=== PATIENT | male | born 1950 | race Caucasian/White ===

== ENCOUNTER → 2020-05-01 15:14 | Outpatient (ROUT) | payer MEDICARE, SELFPAY ==
[2020-05-01 15:47] LABS: Aspartate Aminotransferase 23 IU/L (17-59); BUN Creatinine Ratio 20.2 (6-22); Blood Urea Nitrogen 18 mg/dL (9-20); Calcium 10.1 mg/dL (8.4-10.2); Carbon Dioxide 28 mmol/L (22-32); Chloride 103 mmol/L (98-107); Cholesterol 179 mg/dL (140-199); Estimated Glomerular Filt Rate > 60.0 mL/min (>60); Glucose 92 mg/dL (80-110); HDL Cholesterol 40 mg/dL (40-60); HEMOLYSIS < 15 (0-50); LDL Cholesterol Calculated 125 mg/dL (<100); Potassium 4.7 mmol/L (3.4-5.1); Sodium 137 mmol/L (137-145); Triglycerides 69 mg/dL (35-150)
[2020-05-01 16:13] LABS: Prostate Specific Antigen 5.35 ng/mL (0.10-4.00)
== END ==
PROVIDERS: PCP Internal Medicine; Visit Provider Internal Medicine
DX: N40.1 Benign prostatic hyperplasia with lower urinary tract symptoms (principal); E78.2 Mixed hyperlipidemia
CPT/HCPCS: 80048; 80061; 84153; 84450

== ENCOUNTER → 2021-08-07 10:28 | Outpatient (CLI) | payer MEDICARE, SELFPAY ==
--- NOTE | 2021-08-07 10:30 | DI.RAD.S_ITS ---
PROCEDURE: XR CHEST 2V INDICATIONS: shortness of breath, cough TECHNIQUE: 2 views of the chest were acquired. COMPARISON: None. FINDINGS: Surgical changes and devices: None. Lungs and pleura: Lungs are clear. No pleural effusions or pneumothorax. Mediastinum: Mediastinal contours are normal. Heart size is normal. Bones and chest wall: No suspicious bony abnormalities. Soft tissues appear unremarkable. IMPRESSION: No acute cardiopulmonary process demonstrated radiographically. Dictated by: Johan Estrada M.D. on 08/07/2021 at 11:07 Approved by: Johan Estrada M.D. on 08/07/2021 at 11:07
[2021-08-07 11:28] LABS: Hematocrit 44.6 % (41-53); Hemoglobin 15.3 g/dL (13.5-17.5); Mean Corpuscular HGB Conc 34.3 % (30-36); Mean Corpuscular Hemoglobin 30.8 PG (26-34); Mean Corpuscular Volume 89.9 fL (80-100); Platelet Count 206 X10^3/uL (150-400); Red Blood Cell Count 4.96 X10^6/uL (4.5-5.9); Red Cell Distribution Width 13.1 % (11.6-14.8); White Blood Cell Count 5.4 X10^3/uL (4.5-11.0)
[2021-08-07 11:35] LABS: Alanine Aminotransferase 19 IU/L (<50); Albumin 4.5 g/dL (3.5-5.0); Albumin Globulin Ratio 1.4 (1.0-2.8); Alkaline Phosphatase 66 U/L (38-126); Aspartate Aminotransferase 22 IU/L (17-59); Bilirubin Total 0.8 mg/dL (0.2-1.3); Blood Urea Nitrogen 20 mg/dL (9-20); Calcium 9.3 mg/dL (8.4-10.2); Carbon Dioxide 30 mmol/L (22-32); Chloride 103 mmol/L (98-107); Cholesterol 193 mg/dL (140-199); Estimated Glomerular Filt Rate > 60 mL/min (>60); Globulin 3.2 g/dL (1.7-4.1); Glucose 93 mg/dL (80-110); HDL Cholesterol 41 mg/dL (40-60); HEMOLYSIS < 15 (0-50); LDL Cholesterol Calculated 137 mg/dL (<100); Potassium 4.5 mmol/L (3.4-5.1); Sodium 140 mmol/L (137-145); Total Protein 7.7 g/dL (6.3-8.2); Triglycerides 76 mg/dL (35-150)
[2021-08-07 12:04] LABS: Prostate Specific Antigen 4.84 ng/mL (0.10-4.00)
[2021-08-07 13:11] LABS: TSH w/ Reflex to FT4 1.37 uIU/mL (0.47-4.68)
== END ==
PROVIDERS: PCP Internal Medicine; Referring Provider Internal Medicine; Visit Provider Internal Medicine
DX: R06.02 Shortness of breath (principal); R05.9 Cough, unspecified; E78.2 Mixed hyperlipidemia; N40.1 Benign prostatic hyperplasia with lower urinary tract symptoms; N13.8 Other obstructive and reflux uropathy
CPT/HCPCS: 36415; 71046; 80053; 80061; 84153; 84443; 85027; 93005

== ENCOUNTER → 2021-08-14 15:58 | Outpatient (CLI) | payer MEDICARE, SELFPAY ==
[2021-08-14 16:49] LABS: COVID19 -Nasal RAPID Negative (Negative)
== END ==
PROVIDERS: PCP Internal Medicine; Referring Provider Internal Medicine; Visit Provider Internal Medicine
DX: Z20.822 Contact with and (suspected) exposure to COVID-19 (principal)
CPT/HCPCS: 87635; C9803

== ENCOUNTER → 2021-08-15 08:19 | Outpatient (CLI) | payer MEDICARE, SELFPAY ==
--- NOTE | 2021-08-20 08:25 | PM.PFT.1 ---
Pulmonary Function Test Referral & Results Date Patient Seen: 08/15/21 Requesting provider: Omar Noriega Results: The spirometry demonstrates an FVC of 3.43 L which is 82% of predicted. The FEV1 was measured at 2.56 L which is 85% of predicted. The FEV1/FVC ratio was 75 which is 102% of predicted. Following the administration of bronchodilator there was a 20% improvement in FEF 25-75%. Lung volumes show an SVC of 3.46 L which is 79% of predicted. The diffusing capacity was measured at 30.43 which is 98% of predicted. The maximum voluntary ventilation was normal Interpretation: This study demonstrates probably normal pulmonary function There is a minimal reduction FEV1 suggesting the possibility of mild obstructive lung disease although FEV1/FVC ratio is preserved. There is also some very limited evidence of benefit in small airway flow after bronchodilator administration based on improvement in FEF 25-75% as above There may also be a very minimal reduction in lung volumes suggesting the possibility of very mild restrictive lung disease based on reduction SVC as above Clinical correlation suggested
== END ==
PROVIDERS: PCP Internal Medicine; Referring Provider Internal Medicine; Visit Provider Internal Medicine
DX: R06.02 Shortness of breath (principal); R05.9 Cough, unspecified; J98.8 Other specified respiratory disorders
CPT/HCPCS: 94060; 94726; 94729

== ENCOUNTER → 2021-09-29 09:59 | Outpatient (CLI) | payer MEDICARE, SELFPAY ==
[2021-09-29 10:38] LABS: COVID19 -Nasal RAPID Negative (Negative)
--- NOTE | 2021-09-29 17:32 | DI.NM.S_ITS ---
DATE OF SERVICE: 09/29/2021 PROCEDURE: Exercise perfusion study. INDICATION: Chest tightness, shortness of breath with underlying hyperlipidemia. RADIOPHARMACEUTICAL: 24.1 millicurie technetium-99m Myoview IV was injected at stress and 11.7 millicurie technetium-99m Myoview IV was injected at rest. CARDIAC STRESS: The patient underwent exercise perfusion study under the supervision of an attending staff. In total, he walked on Demarco protocol for 10 minutes and 20 seconds. However, after walking on Demarco protocol for about 9 minutes, 40 seconds, it was adjusted manually, as he was having difficulty keeping up with treadmill. Baseline blood pressure 118/88. Peak blood pressure 188/80. Maximum heart rate 160 beats per minute. Achieved 109 percent of target heart rate. 11.6 METs of workload and YEHUDA -45 percent. Baseline rhythm was sinus. During stress, no convincing ischemic changes seen. Some nonspecific ST-T changes seen. Rare PACs without any obvious ventricular tachycardia or atrial fibrillation. No chest discomfort. The patient had some shortness of breath. RAW DATA: There was increased subdiaphragmatic activity. GATED STUDY: Resting LV ejection fraction is 70 percent and stress LV ejection fraction 80 percent. No obvious wall motion abnormalities. Resting end- diastolic volume 74 mL. TID ratio 0.63, which is within normal limits. Lung/heart ratio 0.38, which is within normal limits. MYOCARDIAL PERFUSION SCAN: Stress supine, resting supine and stress prone images were compared to each other. Stress supine and resting supine images showed a small to moderate size, mildly decreased perfusion of base to mid inferior wall, which got completely resolved during stress prone images, suggestive of diaphragmatic tissue attenuation artifact. CONCLUSION: This is a normal myocardial perfusion study with evidence of diaphragmatic tissue attenuation artifact, which got resolved during stress prone images. The stress prone images revealed normal myocardial perfusion. Excellent exercise tolerance. Functional aerobic impairment -45 percent. Normal hemodynamic response. No convincing ischemic changes. No chest pain. The patient had shortness of breath. Left ventricular function is preserved. Overall, this is a low-risk exercise myocardial perfusion scan. GeorgeChandler march - Chris/taylor doc#: [id number]/job#: [id number] dd: 09/29/2021 16:51:00 dt: 09/29/2021 17:00:00 DICTATING MD/COPIES TO: Alyssa Mendez MD COPIES MNE: ELIEL;
== END ==
PROVIDERS: PCP Internal Medicine; Referring Provider Internal Medicine; Visit Provider Internal Medicine
DX: R06.02 Shortness of breath (principal); R07.89 Other chest pain; E78.5 Hyperlipidemia, unspecified; Z20.822 Contact with and (suspected) exposure to COVID-19
CPT/HCPCS: 78452; 87635; 93017; A9502

== ENCOUNTER → 2023-06-30 08:51 | Outpatient (CLI) | payer MEDICARE, SELFPAY ==
[2023-06-30 10:07] LABS: Hematocrit 46.3 % (41-53); Hemoglobin 15.6 g/dL (13.5-17.5); Mean Corpuscular HGB Conc 33.7 % (30-36); Mean Corpuscular Hemoglobin 30.8 PG (26-34); Mean Corpuscular Volume 91.4 fL (80-100); Platelet Count 229 X10^3/uL (150-400); Red Blood Cell Count 5.06 X10^6/uL (4.5-5.9); White Blood Cell Count 6.2 X10^3/uL (4.5-11.0)
[2023-06-30 10:23] LABS: Alanine Aminotransferase 24 IU/L (<50); Albumin 4.5 g/dL (3.5-5.0); Albumin Globulin Ratio 1.7 (1.0-2.8); Alkaline Phosphatase 62 U/L (38-126); Aspartate Aminotransferase 20 IU/L (17-59); Bilirubin Total 0.9 mg/dL (0.2-1.3); Blood Urea Nitrogen 26 mg/dL (9-20); Calcium 9.6 mg/dL (8.4-10.2); Carbon Dioxide 28 mmol/L (22-32); Chloride 106 mmol/L (98-107); Cholesterol 186 mg/dL (140-199); Estimated Glomerular Filt Rate > 60 mL/min (>60); Globulin 2.7 g/dL (1.7-4.1); Glucose 91 mg/dL (80-110); HDL Cholesterol 44 mg/dL (40-60); HEMOLYSIS < 15 (0-50); LDL Cholesterol Calculated 119 mg/dL (<100); Potassium 4.7 mmol/L (3.4-5.1); Sodium 140 mmol/L (137-145); Total Protein 7.2 g/dL (6.3-8.2); Triglycerides 114 mg/dL (35-150)
[2023-06-30 10:53] LABS: Prostate Specific Antigen 4.72 ng/mL (0.10-4.00)
== END ==
PROVIDERS: PCP Internal Medicine; Referring Provider Internal Medicine; Visit Provider Internal Medicine
DX: E78.2 Mixed hyperlipidemia (principal); N40.1 Benign prostatic hyperplasia with lower urinary tract symptoms; N13.8 Other obstructive and reflux uropathy
CPT/HCPCS: 36415; 80053; 80061; 84153; 85027

== ENCOUNTER 2023-12-15 17:19 | Emergency (ER) | payer MEDICARE, SELFPAY ==
[2023-12-15] VITALS (7 sets, daily range): BP systolic 114–142; BP diastolic 70–77; PULSE 62–80; RESP 16–17; TEMP 36.6; O2SAT 91–98; BMI 28.0
--- NOTE | 2023-12-15 17:27 | DI.RAD.S_ITS ---
PROCEDURE: XR CHEST 1V INDICATIONS: chest pain TECHNIQUE: One view of the chest was acquired. COMPARISON: [facility], CR, XR CHEST 2V, 08/07/2021, 10:18. FINDINGS: Surgical changes and devices: None. Lungs and pleura: Lungs are clear. No pleural effusions or pneumothorax. Mediastinum: Mediastinal contours appear normal. Heart size is normal. Bones and chest wall: No suspicious bony lesions. Overlying soft tissues appear unremarkable. IMPRESSION: No acute cardiopulmonary abnormalities or focal consolidation. Dictated by: Valente Uriarte M.D. on 12/15/2023 at 18:16 Approved by: Valente Uriatre M.D. on 12/15/2023 at 18:16
--- NOTE | 2023-12-15 17:30 | EKG_ITS ---
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
--- NOTE | 2023-12-15 17:40 | PC.NURSE ---
Patient took two chewable baby aspirin before coming to the ER. Order changed to 162mg ASA.
[2023-12-15] MEDS: ASPIRIN 81 MG CHEW TAB 162 MG PO (17:41)
[2023-12-15 18:00] LABS: Add Manual Diff / Slide Review NO; Basophils Absolute Auto 100 /uL (0-100); Basophils Percent Auto 0.7 % (0-2); Eosinophils Absolute Auto 200 /uL (0-450); Eosinophils Percent Auto 2.8 % (2-4); Hematocrit 45.6 % (41-53); Hemoglobin 15.6 g/dL (13.5-17.5); Lymphocytes Absolute Auto 2700 /uL (1100-4500); Lymphocytes Percent Auto 32.8 % (25-40); Mean Corpuscular HGB Conc 34.1 % (30-36); Mean Corpuscular Hemoglobin 31.2 PG (26-34); Mean Corpuscular Volume 91.5 fL (80-100); Monocytes Absolute Auto 500 /uL (0-900); Monocytes Percent Auto 6.5 % (3-14); Neutrophils Absolute Auto 4700 /uL (1500-7000); Neutrophils Percent Auto 57.2 % (50-75); Platelet Count 244 X10^3/uL (150-400); Red Blood Cell Count 4.99 X10^6/uL (4.5-5.9); Red Cell Distribution Width 13.3 % (11.6-14.8); White Blood Cell Count 8.2 X10^3/uL (4.5-11.0)
[2023-12-15 18:07] LABS: INR 0.9 (0.9-1.3); Prothrombin Time 10.6 SECONDS (9.4-12.5)
[2023-12-15 18:10] LABS: PTT Partial Thromboplastin Tim 31 SECONDS (25.1-36.5)
[2023-12-15 18:17] LABS: Alanine Aminotransferase 28 IU/L (<50); Albumin 4.6 g/dL (3.5-5.0); Albumin Globulin Ratio 1.6 (1.0-2.8); Alkaline Phosphatase 68 U/L (38-126); Aspartate Aminotransferase 26 IU/L (17-59); BUN Creatinine Ratio 20.3 (6-22); Blood Urea Nitrogen 25 mg/dL (9-20); Calcium 9.6 mg/dL (8.4-10.2); Carbon Dioxide 26 mmol/L (22-32); Chloride 104 mmol/L (98-107); Creatine Kinase 48 U/L (55-170); Estimated Glomerular Filt Rate > 60 mL/min (>60); Globulin 2.8 g/dL (1.7-4.1); Glucose 95 mg/dL (80-110); HEMOLYSIS < 15 (0-50); Lipase 77 U/L (23-300); Magnesium 2.1 mg/dL (1.6-2.3); Potassium 4.3 mmol/L (3.4-5.1); Sodium 137 mmol/L (137-145); Total Protein 7.4 g/dL (6.3-8.2)
[2023-12-15 18:28] LABS: NT-proBNP (BNP-Adult 18+) 43 pg/mL (<450); Troponin I < 0.012 ng/mL (0.01-0.034)
--- NOTE | 2023-12-15 19:10 | ED.CHESTPAIN ---
HPI - Chest Pain General Chief Complaint: Chest Pain Stated Complaint: chest pain, sob Time Seen by Provider: 12/15/23 19:10 Source: patient Mode of arrival: Ambulatory History of Present Illness HPI narrative: 73-year-old male with no known history of coronary artery disease, has had intermittent chest discomfort for the last couple of weeks, increasing frequency last couple of days, usually at wrist, not particularly with any exertion, short in duration, no associated pain in either arm or neck or back or jaw. No associated diaphoresis or nausea or vomiting. Symptoms are short in duration. No specific treatments tried. He denies coronary artery risk factors of diabetes, smoking, hypertension, but is taking a statin cholesterol medication. He recalls having stress testing but a proximally 10 years ago, none more recent. He is due to see his primary care physician Dr. Hari collado. He denies any fevers or chills. He denies cough. He had inhaler to use in the distant past, not usually on any lung medications, denies history of COPD or other chronic lung problems. No history of heart failure recalled, no swelling to legs. No history of blood clots to legs or lungs, no leg pain symptoms. Related Data Home Medications Medication Instructions Recorded Confirmed rosuvastatin 10 mg tablet 10 mg PO DAILY 08/07/21 12/15/23 Previous Rx's Medication Instructions Recorded albuterol sulfate 90 mcg/actuation 2 puff inhalation Q6H PRN 08/15/21 aerosol inhaler shortness of breath or wheezing #8.5 grams valacyclovir 500 mg tablet 500 mg PO BID #14 tabs 03/06/22 tadalafil 5 mg tablet 5 mg PO DAILY #90 tabs 06/30/23 sodium,potassium,mag sulfates 17.5 See Rx Instructions PO .COMPLEX 09/06/23 gram-3.13 gram-1.6 gram oral soln #354 mL (Suprep Bowel Prep Kit) dextroamphetamine-amphetamine ER 20 mg PO DAILY #90 caps 09/07/23 20 mg 24hr capsule,extend release (Adderall XR) Allergies Allergy/AdvReac Type Severity Reaction Status Date / Time No Known Drug Allergies Allergy Verified 12/15/23 17:30 Review of Systems Review of Systems Narrative: See HPI Patient History Medical History Herpesviral infection, unspecified RAD (reactive airway disease) Abnormal chest xray (~1962) Chronic back pain (~2021) Chicken pox History of elevated PSA Erectile dysfunction History of colonic polyps BPH w urinary obs/LUTS ADD (attention deficit disorder) Mixed hyperlipidemia History of lower leg fracture (~2017) Osteoarthritis Surgical History History of appendectomy History of appendectomy Family History Father Heart disease Mother Stomach cancer Social History Smoking Status: Never smoker Smoking Status: Never smoker alcohol intake frequency: holidays/special occasions only Substance Use Type: does not use Exam Narrative Exam Narrative: GENERAL: Well-developed patient, in mild distress. HEAD: Atraumatic. Normocephalic. EYES: Pupils equal round and reactive. Extraocular motions intact. No scleral icterus. No injection or drainage. ENT: Nose without bleeding, purulent drainage. Throat without erythema, tonsillar hypertrophy or exudate. Airway patent. NECK: Trachea midline. Non tender CARDIOVASCULAR: Regular rate and rhythm without murmurs, gallops, or rubs. RESPIRATORY: Clear to auscultation. Breath sounds equal bilaterally. No wheezes, rales, or rhonchi. GASTROINTESTINAL: Abdomen soft, non-tender, nondistended. EXTREMITIES: No edema or joint tenderness. BACK: Nontender without deformity or crepitance. No flank tenderness. NEURO: AOx3. Motor functions grossly nonfocal SKIN: No rash or erythema of visible areas Initial Vital Signs Initial Vital Signs: Vital Signs Temperature 98 F 12/15/23 17:28 Pulse Rate 80 12/15/23 17:28 Respiratory Rate 17 12/15/23 17:28 Blood Pressure 142/77 H 12/15/23 17:28 Pulse Oximetry 96 12/15/23 17:28 Oxygen Delivery Method Room Air 12/15/23 17:28 Course Orders Ordered: ED Orders 12/15/23 17:27 XR chest 1V Stat EKG-12 Lead Stat 12/15/23 17:48 Complete Blood Count AUTO DIFF Stat Comprehensive Metabolic Panel Stat Lipase Stat Magnesium Stat NT-proBNP (BNP-Adult 18+) Stat PTT Partial Thromboplastin [place] Stat Prothrombin Time INR Stat Troponin & CK Cardiac Panel Stat 12/15/23 20:13 Troponin I Stat Discontinued Medications Aspirin (Aspirin 81 Mg Chew Tab) 324 mg PO NOW ONE Stop: 12/15/23 17:28 Last Admin: 12/15/23 17:42 Dose: Not Given Documented By: DARIAN Aspirin (Aspirin 81 Mg Chew Tab) 162 mg PO NOW ONE Stop: 12/15/23 17:41 Last Admin: 12/15/23 17:41 Dose: 162 mg Documented By: DARIAN Vital Signs Vital signs: Vital Signs - 8 hr 12/15/23 19:07 12/15/23 19:07 12/15/23 19:30 Temperature Pulse Rate 74 65 Respiratory Rate Blood Pressure 136/77 Pulse Oximetry 98 95 Oxygen Delivery Method Room Air 12/15/23 19:30 12/15/23 20:00 12/15/23 20:00 Temperature Pulse Rate 66 Respiratory Rate Blood Pressure 124/76 124/76 Pulse Oximetry 95 Oxygen Delivery Method 12/15/23 20:30 12/15/23 21:00 12/15/23 21:24 Temperature 97.8 F Pulse Rate 73 62 Respiratory Rate 16 Blood Pressure 114/70 Pulse Oximetry 91 96 Oxygen Delivery Method Room Air 12/15/23 21:24 Temperature Pulse Rate 74 Respiratory Rate Blood Pressure Pulse Oximetry 98 Oxygen Delivery Method MDM - Chest Pain Lab Data Attestation: I reviewed the patient's lab results. Lab results narrative: CBC unremarkable, hemoglobin 15 noted, renal function normal, electrolytes unremarkable, glucose normal. LFTs normal. BNP not elevated. Troponin negative. 12/15/23 17:48 12/15/23 17:48 Labs: Lab Results 12/15/23 12/15/23 Range/Units 17:48 20:13 WBC 8.2 (4.5-11.0) X10^3/uL RBC 4.99 (4.5-5.9) X10^6/uL Hgb 15.6 (13.5-17.5) g/dL Hct 45.6 (41-53) % MCV 91.5 (80-100) fL MCH 31.2 (26-34) PG MCHC 34.1 (30-36) % RDW 13.3 (11.6-14.8) % Plt Count 244 (150-400) X10^3/uL Neut % (Auto) 57.2 (50-75) % Lymph % (Auto) 32.8 (25-40) % [place] % (Auto) 6.5 (3-14) % Eos % (Auto) 2.8 (2-4) % Baso % (Auto) 0.7 (0-2) % Neut # (Auto) 4700 (5899-4455) /uL Lymph # (Auto) 2700 (6452-7970) /uL [place] # (Auto) 500 (0-900) /uL Eos # (Auto) 200 (0-450) /uL Baso # (Auto) 100 (0-100) /uL PT 10.6 (9.4-12.5) SECONDS INR 0.9 (0.9-1.3) APTT 31 (25.1-36.5) SECONDS Sodium 137 (137-145) mmol/L Potassium 4.3 (3.4-5.1) mmol/L Chloride 104 (98-107) mmol/L Carbon Dioxide 26 (22-32) mmol/L BUN 25 H (9-20) mg/dL Creatinine 1.23 (0.66-1.25) mg/dL Estimated GFR > 60 (>60) mL/min BUN/Creatinine Ratio 20.3 (6-22) Glucose 95 (80-110) mg/dL Calcium 9.6 (8.4-10.2) mg/dL Magnesium 2.1 (1.6-2.3) mg/dL Total Bilirubin 1.0 (0.2-1.3) mg/dL AST 26 (17-59) IU/L ALT 28 (<50) IU/L Alkaline Phosphatase 68 (38-126) U/L Total Creatine Kinase 48 L (55-170) U/L Troponin I < 0.012 0.012 (0.01-0.034) ng/mL NT-Pro-B Natriuret Pep 43 (<450) pg/mL Total Protein 7.4 (6.3-8.2) g/dL Albumin 4.6 (3.5-5.0) g/dL Globulin 2.8 (1.7-4.1) g/dL Albumin/Globulin Ratio 1.6 (1.0-2.8) Lipase 77 (23-300) U/L Imaging Data Chest x-ray: Radiologist's Impression: [address] [address] XRay Report Signed Patient: Chandler Vazquez MR#: [id number] : 1950 Acct:[id number] Age/Sex: 73 / M Date of Service: 12/15/23 Loc: ED Accession Number: [id number] Procedure: XR chest 1V Ordering Provider: Tiny Courtney MD PROCEDURE: XR CHEST 1V INDICATIONS: chest pain TECHNIQUE: One view of the chest was acquired. COMPARISON: [facility], CR, XR CHEST 2V, 08/07/2021, 10:18. FINDINGS: Surgical changes and devices: None. Lungs and pleura: Lungs are clear. No pleural effusions or pneumothorax. Mediastinum: Mediastinal contours appear normal. Heart size is normal. Bones and chest wall: No suspicious bony lesions. Overlying soft tissues appear unremarkable. IMPRESSION: No acute cardiopulmonary abnormalities or focal consolidation. Dictated by: Valente Uriarte M.D. on 12/15/2023 at 18:16 Approved by: Valente Uriarte M.D. on 12/15/2023 at 18:16 ECG Data Attestation: I personally reviewed and interpreted this ECG as follows: Interpretation: Normal sinus rhythm with rate of 80, no obvious ST segment elevation or depression changes. T-wave flattening in lead 3 upright in other contiguous inferior leads 2 and F. NV 132, QRS 78, QTC 410. MDM Narrative Medical decision making narrative: 73-year-old male with intermittent chest discomfort last couple of weeks, history of statin use for cholesterol, otherwise no coronary risk factors besides age, no recent coronary stress testing, no known CAD. Afebrile, sirs screen negative. Lungs clear. Chest x-ray unremarkable. EKG without obvious ischemic changes. Screening labs pending. CBC, CMP, troponin, BNP unremarkable hour and/or negative. We will obtain interval repeat troponin. Repeat troponin negative as well. Offered admission for expedited cardiac stress testing. Patient prefers to follow up with his primary care provider, get further testing as an outpatient for now. Advised take aspirin daily. Return precautions discussed. Discharge Plan Departure Patient Disposition: Home Clinical Impression: Chest pain Instructions: DI for Chest Pain Activity Restrictions/Additional Instructions: Intermittent chest discomfort recent weeks, EKG chest x-ray and serial blood tests unremarkable for now. No active chest pain. We did discuss admission for further stress testing evaluation, though you wanted to have this as an outpatient for now, stated that he had close follow up with your primary care provider. He preferred to have further evaluation as an outpatient for now. Take aspirin daily for now. Follow up with your regular provider as planned next week. Return to this/nearest emergency department for any change worsening symptoms or any concerns prior Prescriptions: No Action valacyclovir 500 mg tablet 500 mg PO BID Qty: 14 5RF sodium,potassium,mag sulfates [Suprep Bowel Prep Kit] 17.5-3.13-1.6 gram recon soln See Rx Instructions PO .COMPLEX Qty: 354 0RF Rx Instructions: take as directed by Physician rosuvastatin 10 mg tablet 10 mg PO DAILY tadalafil 5 mg tablet 5 mg PO DAILY Qty: 90 3RF dextroamphetamine-amphetamine [Adderall XR] 20 mg capsule,extended release 24hr 20 mg PO DAILY Qty: 90 0RF albuterol sulfate 90 mcg/actuation HFA aerosol inhaler 2 puff inhalation Q6H PRN (Reason: shortness of breath or wheezing) Qty: 8.5 5RF Referrals: Omar Noriega MD [Primary Care Provider] - Stand Alone Forms: Patient Portal/API
[2023-12-15 20:51] LABS: Troponin I 0.012 ng/mL (0.01-0.034)
== END 2023-12-15 21:31 | disposition home or self-care (01) ==
PROVIDERS: Emergency Medicine; Emergency Provider Emergency Medicine; PCP Internal Medicine
DX: R07.9 Chest pain, unspecified (principal)
CPT/HCPCS: 36415; 71045; 80053; 82550; 83690; 83735; 83880; 84484; 85025; 85610; 85730; 93005; 99284

== ENCOUNTER → 2023-12-28 14:04 | Outpatient (CLI) | payer MEDICARE, SELFPAY ==
--- NOTE | 2023-12-29 18:08 | DI.NM.S_ITS ---
DATE OF SERVICE: 12/29/2023 PROCEDURE: Exercise perfusion study. INDICATIONS: Chest pain with hyperlipidemia. RADIOPHARMACEUTICAL: 24 mCi technetium-99m Myoview IV was injected at stress and 24.5 mCi technetium-99m Myoview IV was injected at rest. CARDIAC STRESS: The patient underwent exercise perfusion study under the supervision of an attending staff. He walked on Demarco protocol for 7 minutes and 45 seconds, achieved maximum heart rate of 154, which was 106% of target heart rate. Resting blood pressure 122/80 and peak blood pressure 182/100 mmHg. YEHUDA -26%. 10.1 METs of workload. Baseline rhythm is sinus with occasional PACs and PVCs. During stress, no convincing ischemic changes seen. Rare PVCs. The patient had 3-beat run of atrial tachycardia without any AFib. Normal recovery. The patient had 5/10 chest tightness during exercise without any radiation. It got resolved around 4 minutes into recovery. During chest discomfort, there were no obvious ischemic EKG changes. RAW DATA: There is increased subdiaphragmatic activity and gut shadow encroaching the inferior border of the heart. GATED STUDY: Stress LV ejection fraction is 74% without any obvious wall motion abnormalities. Resting end-diastolic volume 75 mL. TID ratio 0.97, which is within normal limits. Lung/heart ratio 0.32, which is within normal limits. MYOCARDIAL PERFUSION SCAN: Stress supine, resting supine, and stress prone images were compared to each other. Stress supine and resting supine images revealed small size, mildly decreased perfusion of basal inferior wall and basal inferior septum which got completely resolved during stress prone images suggestive of tissue attenuation artifact. No obvious ischemia or infarction. CONCLUSION: I will call this study a normal myocardial perfusion study with evidence of diaphragmatic tissue attenuation artifact which got resolved during prone images. Good exercise tolerance. YEHUDA -26%. Normal hemodynamic response. No ischemic EKG changes when patient had chest discomfort. Rare PACs and PVCs and 3-beat run of narrow-complex tachycardia. The patient had perfusion scan in September 2021. At that time, he had similar findings. Overall, low-risk myocardial perfusion scan. Consider workup to rule out hiatal hernia based on raw data as well as GI workup to rule out GI etiologies of chest discomfort. Chandler Vazquez - YUE/amor/KAMLA doc#: [id number]/job#: [id number] dd: 12/29/2023 17:13:00 dt: 12/29/2023 17:57:00 DICTATING MD/COPIES TO: Alyssa Mendez MD COPIES MNE: ELIEL;
== END ==
PROVIDERS: PCP Internal Medicine; Referring Provider Internal Medicine; Visit Provider Internal Medicine
DX: R07.9 Chest pain, unspecified (principal)
CPT/HCPCS: 78452; 93017; A9502

== ENCOUNTER → 2025-01-15 08:59 | Outpatient (CLI) | payer MEDICARE, SELFPAY ==
[2025-01-15 10:28] LABS: Hematocrit 44.8 % (41-53); Hemoglobin 15.3 g/dL (13.5-17.5); Mean Corpuscular HGB Conc 34.1 % (30-36); Mean Corpuscular Hemoglobin 30.9 PG (26-34); Mean Corpuscular Volume 90.6 fL (80-100); Platelet Count 211 X10^3/uL (150-400)
[2025-01-15 10:57] LABS: Alanine Aminotransferase 19 IU/L (<50); Albumin 4.2 g/dL (3.5-5.0); Albumin Globulin Ratio 1.6 (1.0-2.8); Alkaline Phosphatase 69 U/L (38-126); Blood Urea Nitrogen 21 mg/dL (9-20); Calcium 9.4 mg/dL (8.4-10.2); Carbon Dioxide 27 mmol/L (22-32); Chloride 106 mmol/L (98-107); Cholesterol 221 mg/dL (140-199); Estimated Glomerular Filt Rate > 60 mL/min (>60); Globulin 2.7 g/dL (1.7-4.1); Glucose 90 mg/dL (70-99); HDL Cholesterol 51 mg/dL (40-60); HEMOLYSIS < 15 (0-50); Potassium 4.5 mmol/L (3.4-5.1); Sodium 140 mmol/L (137-145); Total Protein 6.9 g/dL (6.3-8.2); Triglycerides 136 mg/dL (35-150)
[2025-01-15 11:26] LABS: Prostate Specific Antigen 5.78 ng/mL (0.10-4.00)
== END ==
PROVIDERS: PCP Internal Medicine; Referring Provider Internal Medicine; Visit Provider Internal Medicine
DX: E78.2 Mixed hyperlipidemia (principal); N40.1 Benign prostatic hyperplasia with lower urinary tract symptoms; N13.8 Other obstructive and reflux uropathy
CPT/HCPCS: 36415; 80053; 80061; 84153; 85027

== ENCOUNTER → 2025-01-16 14:48 | Outpatient (CLI) | payer MEDICARE, SELFPAY | PROVIDERS: PCP Internal Medicine; Referring Provider Internal Medicine; Visit Provider Internal Medicine | DX: Z12.11 Encounter for screening for malignant neoplasm of colon (principal) | CPT/HCPCS: 82274 ==